=== PATIENT | female | born 1935 | race Caucasian/White ===

== ENCOUNTER 2016-07-08 13:00 | Day surgery (SDC) | payer OTHER ==
[~2016-07-08 13:00] MED LIST: ASPI81 PO; ATOR20TA42 PO; CLOP75 PO; ESTR.3 PO; PROM25SU8 PO; TOPR25TA2 PO
[2016-07-08 13:18] VITALS: BP 147/78; PULSE 64; RESP 20; TEMP 98; O2SAT 97
--- NOTE | 2016-07-08 15:40 | RADRPT ---
EXAM DATE/TIME: 07/08/2016 00:00 [place] COMPARISON : No previous studies available for comparison. INDICATIONS : Celiac Stenosis OBJECTIVE: Temperature: 98 Heart Rate: 64 Blood Pressure: 147/78 Respiratory: 20 Oximetry: 97 PNEUMONIA VACCINE: HISTORY OF PRESENT ILLNESS: The patient has had left upper quadrant abdominal pain and chest pain since about March ar. The patient does indicate that she frequently has pain following meals and does experience early satiety, however she also complains of being awakened with pain in the left upper quadrant and in the chest.. The pain usually subsides with Tylenol and rest. Patient has lost several pounds since . PAST MEDICAL HISTORY : 1. Hypertension. 2. Aneurysm, abdominal.repaired 3. arrythmia PAST SURGICAL HISTORY : 1. Appendectomy. 2. laminectomy 3. vein surgery bilateral 4. bakers cyst drained right knee 5. Hysterectomy. SOCIAL HISTORY : Social alcohol use. Tobacco;former. ALLERGIES: 1. Cipro 2. gabapentin,pantoprozol,prednisone,bethanechol,amoxicillin 3. lisinopril,flexeril,xanax,prevacid,celebrex,lipitor,pravastatin 4. ofloxacin,percocet,flagyl,zofran,simvastatin,tramadol,prednisone,tizanidine MEDICATIONS: 1. losartin 50 mg q.d. [id number] mg q.d. Lopressor (Metoprolol) 50 mg q.d. Lasix (Furosemide) 20 mg q.d. IMAGING STUDIES: Recent MRA examination from [facility] to my eye reveals very little in the way of mesenteric vascular disease. The celiac and SMA are patent, neither showing what is likely to be physiologicall y significant stenosis. ASSESSMENT: I do not see an appropriate target for treatment of mesenteric vascular insufficiency based upon curr ent studies. Patient may benefit from a nuclear medicine gastric emptying study. If any additional CT imaging is planned, a CTA examination might be obtained rather than a conventional CT in order to fu rther evaluate the mesenteric vessels in light of the specific concerns. Kael Merrill MD on July 08, 2016 at 15:28 Board Certified Radiologist. This report was verified electronically.
== END 2016-07-08 14:45 | disposition home or self-care (01) ==
LOC: HROP 13:00 → HRIP 13:02 → HROP 14:45
PROVIDERS: ATTEND Internal Medicine Gastroenterology
DX: I77.4 Celiac artery compression syndrome (principal); I10 Essential (primary) hypertension